=== PATIENT | male | born 1950 | race Caucasian/White ===

== ENCOUNTER 2017-11-27 09:50 | Emergency (ER) | payer SELFPAY ==
[2017-11-27 10:03] VITALS: BP 145/78
[2017-11-27] MEDS ORDERED: Ibuprofen TAB* 600 MG PO ONE (10:47)
--- NOTE | 2017-11-27 10:55 | RAD ---
INDICATION: Left rib injury. COMPARISON: Comparison is made with a prior chest x-ray study from March 04, 2013. TECHNIQUE: 4 views of the left ribs and dual-energy PA views of the chest were obtained. FINDINGS: No fracture or significant focal osseous abnormality is seen. The heart is within normal limits in size. Mediastinal and hilar contours appear normal. The lungs are hyperinflated. There appears to be bilateral apical pleural and parenchymal scarring which is unchanged. No pleural effusion or pneumothorax is seen. IMPRESSION: NO EVIDENCE FOR FRACTURE.
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
== END 2017-11-27 11:19 | disposition home or self-care (01) ==
LOC: UCEAST 09:50
DX: S20.212A Contusion of left front wall of thorax, initial encounter (principal); X58.XXXA Exposure to other specified factors, initial encounter; Y93.89 Activity, other specified; Y92.215 Trade school as the place of occurrence of the external cause; F17.210 Nicotine dependence, cigarettes, uncomplicated
CPT/HCPCS: 99212; A9270-GY; G0463

== ENCOUNTER 2018-10-14 07:31 | Emergency (ER) | payer BC ==
[2018-10-14 07:49] VITALS: BP 123/67
--- NOTE | 2018-10-14 08:19 | UC ---
Shoulder Pain HPI - HPI Summary HPI Summary: 68-year-old male comes in with a chief complaint of left shoulder pain. Started to 3 weeks ago. No known trauma. Patient in the past as had problems with his low back and has had surgery in his low back and he radiculopathy down the left leg and this episode reminds him of the same kind of pain and symptoms. Pain primarily is in the posterior aspect of the left upper chest and the left shoulder and radiates to the left neck. Laying down makes the pain worse. Overall he is good range of motion of his arms. Pain is worse when he is lifting any kind of weight with his left arm. No rash. Patient has a chronic smoker's cough which has not changed since the beginning of this episode. No fevers or chills. No shortness of breath. Does not feel his arm is weak. No complaint of numbness. No prior problems with his shoulder. Has had some upper abdominal pain. He has been taking ibuprofen and he believes the ibuprofen is causing the pain. - History of Current Complaint Chief Complaint: UCUpperExtremity Stated Complaint: LFT SHOULDER PAIN Time Seen by Provider: 10/14/18 07:53 Pain Intensity: 5 - Allergies/Home Medications Allergies/Adverse Reactions: Allergies Allergy/AdvReac Type Severity Reaction Status Date / Time No Known Allergies Allergy Verified 10/14/18 07:41 PMH/Surg Hx/FS Hx/Imm Hx Previously Healthy: Yes - Surgical History Surgical History: Yes Surgery Procedure, Year, and Place: [facility] 03/04 and 2013 AT [facility] [place] - Family History Known Family History: Positive: Non-Contributory - Social History Alcohol Use: Daily Alcohol Amount: 6 beers/day Substance Use Type: None Smoking Status (MU): Heavy Every Day Tobacco Smoker Amount Used/How Often: 1 PPD Review of Systems All Other Systems Reviewed And Are Negative: Yes Constitutional: Positive: Negative Skin: Positive: Negative Eyes: Positive: Negative ENT: Positive: Negative Respiratory: Positive: Cough Cardiovascular: Positive: Chest Pain - see hpi Gastrointestinal: Positive: Abdominal Pain - Upper abd pain intermittent. See HPI. Physical Exam Triage Information Reviewed: Yes Appearance: Well-Appearing, No Pain Distress, Well-Nourished Vital Signs: Initial Vital Signs Temp 97.4 F 10/14/18 07:42 Pulse 88 10/14/18 07:42 Resp 16 10/14/18 07:42 BP 123/67 10/14/18 07:42 Pulse Ox 97 10/14/18 07:42 Vital Signs Reviewed: Yes Eye Exam: Normal Eyes: Positive: Conjunctiva Clear Neck: Positive: Supple, Tenderness @ - left upper paraspinous mild tenderness Respiratory: Positive: Lungs clear, Normal breath sounds, No respiratory distress Cardiovascular: Positive: RRR Abdomen Description: Positive: Nontender, Soft Musculoskeletal: Positive: Strength Intact, ROM Intact, Other: - Normal radial pulses bilaterally. Fingers wrists and elbows have full range of motion with full strength. Normal capillary refill no sensation deficit. Shoulder extension 160 bilaterally. Shoulder abduction 110 bilaterally. Internal rotation T8 on the left T4 on the right. Patient does state that the left shoulder and neck pain gets worse with internal rotation on the left. Neurological Exam: Normal Neurological: Positive: Alert, Muscle Tone Normal Psychological Exam: Normal Psychological: Positive: Age Appropriate Behavior Skin Exam: Normal Skin: Positive: Other - No rash on exam Diagnostics - EKG Cardiac Rate: NL - at 0845 Cardiac Rhythm: Sinus: Normal - 83 bpm Ectopy: None EKG Comparison: Other - < 1mm ST elevation in inferior leads. These were present in the prior EKG of 08/13/13. No changes from EKG of . Shoulder Course/Dx - Course Course Of Treatment: Patient Name: SHAR WOODRUFF Medical Record#: [id number] Ordering Physician: Jeremias Kumar MD Acct.#: [id number] : 1950 Age: 68 Sex: M Location: [facility] Exam Date: 10/14/18810 ADM Status: REG ER Order Information: SHOULDER LEFT 2+ VWS Accession Number: [id number] CPT: 25435 Indication: Left shoulder pain. 4 views left shoulder demonstrates no fracture. Degenerative changes of the glenohumeral joint is noted. No fracture is identified. Pression: No fracture of the left shoulder is noted <Electronically signed by Ivone Estrada MD in [place]> 03/25/19 0853 Patient Name: SHAR WOODRUFF Medical Record#: [id number] Ordering Physician: Jeremias Kumar MD Acct.#: [id number] : 1950 Age: 68 Sex: M Location: [facility] Exam Date: 10/14/18810 ADM Status: REG ER Order Information: CT CHEST W/O Accession Number: [id number] CPT: 07646 HISTORY: left upper posterior chest pain,is a smoker COMPARISONS: None relevant available at the time of dictation. TECHNIQUE: Multiple contiguous axial CT scans of the chest were obtained without intravenous contrast. Coronal and sagittal multiplanar reformations are also submitted for review. FINDINGS: NECK AND THYROID: The lower neck and thyroid are unremarkable. CHEST WALL: There is no lower cervical, axillary, or supraclavicular lymphadenopathy by size criteria. HEART AND PERICARDIUM: Coronary and valvular cardiac calcifications are noted. AORTA AND PULMONARY VASCULATURE: There is calcification of the thoracic aorta. The pulmonary vasculature is unremarkable. MEDIASTINUM: There is no mediastinal lymphadenopathy by size criteria. ASHLEY: There is no hilar lymphadenopathy by size criteria. AIRWAY AND ESOPHAGUS: The airway is unremarkable, without endobronchial filling defect. The esophagus is grossly normal. LUNG PARENCHYMA: There is centrilobular emphysematous change with an apical predominance. There are scattered small nodules, with the dominant nodule of the right lower lobe measuring 0.6 cm PLEURA: No pleural abnormalities are noted. UPPER ABDOMEN: The upper abdomen is unremarkable. BONES AND SOFT TISSUES: Degenerative changes are noted. OTHER: None. IMPRESSION: 1. EMPHYSEMA. 2. SMALL PULMONARY PARENCHYMAL NODULES MEASURING UP TO 0.6 CM IN SIZE. THE RECOMMENDATIONS FOR FOLLOWUP AND MANAGEMENT OF AN INCIDENTALLY DETECTED PULMONARY NODULE GREATER THAN OR EQUAL TO 6 MM BUT LESS THAN OR EQUAL TO 8 MM IN SIZE, IN A PATIENT WITHOUT A HISTORY OF MALIGNANCY, INCLUDE FOLLOWUP CT IN 6-12 MONTHS, THEN CONSIDER AGAIN AT 18-24 MONTHS FOR A LOW-RISK PATIENT OR FOLLOWUP CT IN 6-12 MONTHS, THEN AGAIN AT 18- 24 MONTHS FOR A HIGH RISK PATIENT. 3. ATHEROSCLEROSIS. NOTES: SIZE = AVERAGE LENGTH AND WIDTH; HIGH RISK IS DEFINED A HISTORY OF SMOKING OR OTHER KNOW RISK FACTORS FOR LUNG CANCER; LOW RISK IS DEFINED MINIMAL OR ABSENT HISTORY OF SMOKING OR OTHER KNOWN RISK FACTORS. Rusty Rivera, CIRILO Velasquez, TAI Rajan, et al (2017) "Guidelines for Management of Incidental Pulmonary Nodules Detected on CT Images: From the Fleischner Society 2017." Radiology; 284(1): 228-243. doi:10.1148/radiol.3909392542 1. <Electronically signed by Norberto Gar MD in [place]> 10/14/18 0901 Patient Name: SHAR WOODRUFF Medical Record#: [id number] Ordering Physician: Jeremias Kumar MD Acct.#: [id number] : 1950 Age: 68 Sex: M Location: [facility] Exam Date: 10/14/18810 ADM Status: REG ER Order Information: CT SPINE CERVICAL W/O Accession Number: [id number] CPT: 66374 INDICATION: Left-sided neck pain. COMPARISON: There are no prior studies available for comparison. TECHNIQUE: Contiguous axial sections were obtained from the skull base through the T2 vertebra. Images were reconstructed in the sagittal and coronal planes. FINDINGS: VERTEBRA: The vertebra are in normal alignment. No prevertebral soft tissue swelling or fracture is seen. C2-C3: There is mild posterior uncinate process spurring. No spinal canal or neural foraminal narrowing is seen. C3-C4: There is mild to moderate posterior uncinate process spurring and hypertrophic changes within the left facet joint. No significant spinal canal narrowing is present. There is moderate neural foraminal narrowing on the right side and moderate to severe neural foraminal narrowing on the left side. C4-C5: There is moderate posterior uncinate process spurring which appears be associated with a broad-based disc bulge. There is mild spinal canal narrowing and moderate bilateral neural foraminal narrowing. C5-C6: There is moderate posterior uncinate process spurring which causes mild spinal canal narrowing. There is moderate bilateral neural foraminal narrowing. C6-C7: There is mild posterior uncinate process spurring. No significant spinal canal narrowing is present. There is mild to moderate bilateral neural foraminal narrowing. IMPRESSION: 1. NO EVIDENCE FOR FRACTURE. 2. MODERATE DIFFUSE CERVICAL SPONDYLOSIS. THERE IS MILD SPINAL CANAL NARROWING AT THE C4-C5 AND C5-C6 LEVELS AND SIGNIFICANT NEURAL FORAMINAL NARROWING AT MULTIPLE LEVELS DESCRIBED. IF THE PATIENT'S SYMPTOMS PERSIST RECOMMEND MR IMAGING FOR FURTHER EVALUATION. <Electronically signed by Donte Mobley MD in [place]> 10/14/18 0903 We discussed the x-ray results with the patient. I let him know about the pulmonary nodules and the need to follow-up his primary care physician for repeat CT scanning and 6 months. I also let him know that we have not really rule out a pulmonary embolus although the patient pain appears to be neck shoulder and chest wall. I let him know if that anything got worse with chest pain shortness breath fevers he needs to get reevaluated right away. Patient has degenerative changes both in his neck and in his shoulder which may account for the pain he is experiencing. Plan at this time is to follow-up his primary care doctor for the pulmonary nodules and for sports medicine for the neck and shoulder pain. - Differential Dx/Diagnosis Provider Diagnosis: Left shoulder pain, Neck pain, Pulmonary nodule Discharge - Sign-Out/Discharge Documenting (check all that apply): Patient Departure All imaging exams completed and their final reports reviewed: Yes - Discharge Plan Condition: Stable Disposition: HOME Prescriptions: oxyCODONE/Acetamin 5/325 MG* [Percocet 5/325 TAB*] 1 tab PO Q4H PRN #20 tab MDD 6 PRN Reason: Pain Patient Education Materials: Pulmonary Nodules (ED), Shoulder Pain (ED), Neck Pain (ED) Referrals: [facility] [Provider Group] Jersey Smith MD [Primary Care Provider] - [facility] [place] [facility] [Outside] Additional Instructions: FOLLOW UP WITH YOUR PRIMARY CARE DOCTOR AND SPORTS MEDICINE. GET RECHECKED FOR ANY WORSENING OF YOUR CONDITION; PAIN, WEAKNESS, NUMBNESS, CHEST PAIN, SHORTNESS OF BREATH OR QUESTIONS OR CONCERNS. - Billing Disposition and Condition Condition: STABLE Disposition: Home
== END 2018-10-14 09:40 | disposition home or self-care (01) ==
LOC: UCEAST 07:31
DX: M25.512 Pain in left shoulder (principal); M54.2 Cervicalgia; R91.1 Solitary pulmonary nodule; R10.10 Upper abdominal pain, unspecified; F17.210 Nicotine dependence, cigarettes, uncomplicated
CPT/HCPCS: 71250; 72125; 93005; 99212; G0463